=== PATIENT | female | born 2005 | race African-American/Black ===

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

== ENCOUNTER 2024-06-02 18:11 | Emergency (ER) | payer MEDICAID, OTHER ==
[~2024-06-02] VITALS: Ht 160 cm; Wt 100.0 kg
[~2024-06-02 18:11] MED LIST: IBUP-2028 MT
[2024-06-02 18:32] VITALS: O2SAT 99
[2024-06-03] MEDS: ACETAMINOPHEN 650MG/20.3ML UDC PO ONE (01:49)
[2024-06-03] MEDS: DEXAMETHASONE 10 MG/ML VIAL PO ONE (02:20)
[2024-06-03 02:27] VITALS: BP 111/74; PULSE 112; RESP 18; TEMP 37.3; O2SAT 100
== END 2024-06-03 02:29 | disposition home or self-care (01) ==
LOC: ER 18:11
DX: J02.9 Acute pharyngitis, unspecified (principal); Z79.52 Long term (current) use of systemic steroids; Z79.899 Other long term (current) drug therapy
CPT/HCPCS: 99283; 87430; 87070; J1100; Z7610